=== PATIENT | male | born 1955 | race Caucasian/White ===

== ENCOUNTER 2017-01-05 13:24 | Inpatient (IN) | payer OTHER ==
[~2017-01-05] VITALS: Ht 172.7 cm; Wt 129.2 kg
[~2017-01-05 13:24] MED LIST: ACTO45TA8 PO; ATOR1TAB18 PO; BUPR300T PO; LOSA50TA2 PO; PROPOFOL 200 MG/20 ML AMP IV ONE; VENTAER2 INH; VICT18IN SQ
[2017-01-05] MEDS ORDERED: MORPHINE SULFATE 8 MG/ML INJ IV PUSH ONE ×3 (13:30→16:30)
[2017-01-05] MEDS ORDERED: SODIUM CHLOR 0.9% 1000 ML INJ 1,000 ML IV ONE (13:30)
[2017-01-05] MEDS ORDERED: ONDANSETRON HCL 4 MG/2 ML VIAL IV PUSH ONE (13:30)
[2017-01-05] MEDS ORDERED: TETANUS/DIPHTHERIA TOXOID ADULT 0.5 ML VIAL IM ONE (13:30)
[2017-01-05 13:32] VITALS: BP 130/80; PULSE 70; RESP 20; O2SAT 99
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
[2017-01-05] MEDS ORDERED: CIAL5TAB PO (13:38)
[2017-01-05] MEDS ORDERED: FLUT1INH INH (13:39)
[2017-01-05 13:52] LABS: AUTOMATED NEUTROPHIL # 10.7 TH/MM3 (1.8-7.7); BASOPHIL # 0.1 TH/MM3 (0-0.2); BASOPHIL % 0.5 % (0.0-2.0); EOSINOPHIL # 0.1 TH/MM3 (0-0.4); HEMATOCRIT 42.1 % (39.0-51.0); HEMO FLAGS DIFF FINAL; LYMPH % 12.7 % (9.0-44.0); LYMPHOCYTE # 1.7 TH/MM3 (1.0-4.8); MEAN CORPUSCULAR HEMOGLOBIN 29.7 PG (27.0-34.0); MONO % 6.2 % (0.0-8.0); NEUT % 79.6 % (16.0-70.0); PLATELET COUNT 287 TH/MM3 (150-450); RED BLOOD COUNT 4.68 MIL/MM3 (4.50-5.90); RED CELL DISTRIBUTION WIDTH 13.5 % (11.6-17.2); WHITE BLOOD COUNT 13.4 TH/MM3 (4.0-11.0)
[2017-01-05 13:57] LABS: APTT (PATIENT) 22.6 SEC (24.3-30.1); PROTHROMBIN TIME - PATIENT 11.1 SEC (9.8-11.6)
[2017-01-05 14:04] LABS: ANION GAP 10 MEQ/L (5-15); AST (GOT) 24 U/L (15-37); BICARBONATE 26.7 MEQ/L (21.0-32.0); BLOOD UREA NITROGEN 13 MG/DL (7-18); CHLORIDE 98 MEQ/L (98-107); GLOMERULAR FILTRATION RATE 63 ML/MIN (>89); POTASSIUM 3.9 MEQ/L (3.5-5.1); SODIUM (NA) 135 MEQ/L (136-145)
[2017-01-05 14:10] LABS: ALKALINE PHOSPHATASE 71 U/L (45-117); ALT (GPT) 34 U/L (12-78); TOTAL BILIRUBIN ADULT 0.4 MG/DL (0.2-1.0)
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
[2017-01-05 15:13] VITALS: BP 148/72; PULSE 80; RESP 19; O2SAT 96
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
[2017-01-05 16:00] VITALS: O2SAT 100
[2017-01-05] MEDS ORDERED: PROPOFOL 200 MG/20 ML AMP IV ONE (16:00)
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
[2017-01-05] MEDS ORDERED: SODIUM CHLOR 0.9% 1000 ML INJ 1,000 ML IV SCH (16:40)
[2017-01-05] MEDS ORDERED: ACETAMINOPHEN/HYDROcodone 325 MG/5 MG TAB PO PRN (16:45)
[2017-01-05] MEDS ORDERED: SODIUM CHLORIDE 0.9% FLUSH 5 ML FLUSH IVF PRN ×2 (16:45→19:00)
[2017-01-05] MEDS ORDERED: NALOXONE HCL 0.4 MG/ML AMP IV PRN (16:45)
[2017-01-05] MEDS ORDERED: RESP: ALBUTEROL 1.25 MG/3 ML NEB (PRN) NEB (16:45)
[2017-01-05] MEDS ORDERED: diphenhydrAMINE HCL 25 MG CAP PO PRN (16:45)
[2017-01-05] MEDS ORDERED: diphenhydrAMINE HCL 50 MG/ML VIAL IV PRN (16:45)
[2017-01-05] MEDS ORDERED: GLUCAGON 1 MG/ML VIAL OTHER PRN (16:45)
[2017-01-05] MEDS ORDERED: MORPHINE SULFATE 8 MG/ML INJ IV PUSH PRN (16:45)
[2017-01-05] MEDS ORDERED: DEXTROSE 50% IN WATER 50 ML VIAL(D50) IV PUSH PRN (16:45)
[2017-01-05] MEDS ORDERED: VANCOMYCIN HCL 1000 MG VIAL ONE (16:54)
[2017-01-05] MEDS ORDERED: GENTAMICIN SULFATE 80 MG/2 ML VIAL ONE (16:54)
[2017-01-05] MEDS ORDERED: ceFAZolin INJ 1,000 MG VIAL ONE (16:54)
[2017-01-05 17:00] VITALS: BP 141/64; TEMP 98.6
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
[2017-01-05] MEDS ORDERED: ACETAMINOPHEN 1000 MG/100 ML VIAL IV ONE (17:26)
[2017-01-05] MEDS ORDERED: Post-op Orders (for Pharmacy) MISC XX ONE (19:00)
[2017-01-05] MEDS ORDERED: MORPHINE SULFATE 4 MG/ML INJ IV PUSH PRN (19:00)
--- NOTE | 2017-01-05 19:06 | PD.OP ---
cc: Aroldo Rojas MD Operative Report Date of Surgery: Jan 05, 2017 Preoperative Diagnosis: Displaced right tibia and fibula shaft fractures Postoperative Diagnosis: Procedure: Reduction and intramedullary nail fixation right tibia Anesthesia: Gen. Surgeon: Aroldo Rojas Tube Closing Machine Operator(s): Mehran Bacon PA-C The surgical procedure was assisted by my physician orthodontic technician assistant. My P.A. presence was necessary throughout this case for the manipulation and positioning of the surgical extremity. My P.A. was assisting me throughout the duration of this procedure. The skill set of a physician orthodontic technician assistant was medically necessary to complete this procedure. During the surgical case the semiconductor lab technician was working at the back table and the physician orthodontic technician assistant was directly assisting me. Operation and Findings: Implants: ITS [10]mm x [360]mm tibial nail Plan of activity: Toe-touch weightbearing Patient was seen and examined preoperatively. An informed consent was obtained from patient after detailed discussion of risk and benefits. Risks of surgery include bleeding, infection, painful hardware, nonunion, malunion, leg length discrepancy, need for hardware removal, and medical complications associated with anesthesia including blood clots, stroke, heart attack, and were discussed. Operative site was marked. Patient was brought to the operating room placed on or table. Patient received IV antibiotics and was given IV sedation GETA. Operative leg was prepped with alcohol Hibiclens and draped in usual sterile fashion. Timeout procedure was performed Procedure began with reduction of fracture. 2 small incisions were made around the fracture site. A percutaneous clamp was placed. Traction was applied. Fracture was reduced. There was comminution of the fracture. The fracture reduced and excellent alignment was achieved. Fracture clamp was used to aid in reduction. Next a 3 cm incision was made proximal to the patella. Quadriceps tendon was split in line with fibers. Cannulas were placed in the patellofemoral joint to protect the articular surface at all times. A guidepin was placed into the tibia and advanced in the tibial canal. Fluoroscopy was used to confirm appropriate guidepin placement. An opening reamer was used to open the tibial canal. A ball-tipped guidewire was advanced down the tibial canal. Guidepin was passed across the fracture site into the center of the distal tibia. Fluoroscopy confirmed guidepin placement. The nail length was now measured. The fracture was now held in a reduced position and the canal was reamed. The canal was reamed up to appropriate size. A ITS nail was now selected. Next the nail was fully seated. Using perfect [place] technique 2 distal interlocking screws were placed. Using the insertion handle as a guide 2 proximal interlocking screws were placed. Fluoroscopy confirmed excellent of fracture with well-placed hardware. Incisions and the knee joint were thoroughly irrigated with sterile saline. Fascia was closed with #1 Vicryl, subcutaneous tissues closed with 3-0 Vicryl and skin was closed with dayron. Sterile dressings were applied. Patient was awakened and transferred to recovery in stable condition. Aroldo Rojas MD Jan 05, 2017 19:06
[2017-01-05] MEDS ORDERED: fentaNYL CITRATE 250 MCG/5 ML AMP ONE (19:31)
[2017-01-05] MEDS ORDERED: MORPHINE SULFATE 4 MG/ML INJ ONE (19:31)
--- NOTE | 2017-01-05 19:52 | RADRPT ---
EXAM DATE/TIME: 01/05/2017 18:48 [facility] COMPARISON: TIBIA/FIBULA RIGHT (AP/LAT), January 05, 2017, 14:30. INDICATIONS : ORIF right lower leg. MEDICAL HISTORY : None. SURGICAL HISTORY : None. ENCOUNTER: Subsequent ACUITY: 1 day PAIN SCORE: Non-responsive. LOCATION: Right lower leg FINDINGS: Status post placement of intramedullary jennifer tibia. There is good position and alignment of the fractu re fragments. There is good alignment involving the fractures of the fibula. CONCLUSION: Good position and alignment on postoperative study. Ender Garcia MD on January 05, 2017 at 19:50 Board Certified Radiologist. This report was verified electronically.
[2017-01-05] MEDS: LACTATED RINGER'S 1000 ML INJ 1,000 ML IV SCH (20:00)
[2017-01-05 20:45] VITALS: BP 130/68; PULSE 98; RESP 16; TEMP 96.1; O2SAT 98
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
[2017-01-05] MEDS: SODIUM CHLORIDE 0.9% FLUSH 5 ML FLUSH IVF SCH ×2 (21:01)
[2017-01-05] MEDS: ACETAMINOPHEN/HYDROcodone 325 MG/10 MG TAB PO PRN (21:11)
[2017-01-05] MEDS: DOCUSATE SODIUM 100 MG CAP PO SCH (21:11)
[2017-01-05] MEDS: ceFAZolin 2 GM PREMIX 50 ML IV SCH (21:12)
[2017-01-05] MEDS: KETOROLAC TROMETHAMINE 30 MG/ML (IVP) VIAL IVP SCH (21:12)
[2017-01-05] MEDS: INSULIN ASPART SUPPLEMENTAL SCALE SQ SCH (21:13)
[2017-01-05 21:55] VITALS: O2SAT 98
[2017-01-05] MEDS: ONDANSETRON HCL 4 MG/2 ML VIAL IVP PRN (22:22)
[2017-01-06] VITALS (7 sets, daily range): BP systolic 107–136; BP diastolic 65–74; PULSE 86–97; RESP 16–17; TEMP 96.6–99.9; O2SAT 96–99
[2017-01-06] MEDS: LACTATED RINGER'S 1000 ML INJ 1,000 ML IV SCH ×3 (04:59→21:51)
[2017-01-06] MEDS: ONDANSETRON HCL 4 MG/2 ML VIAL IVP PRN (05:11)
[2017-01-06] MEDS: ceFAZolin 2 GM PREMIX 50 ML IV SCH ×3 (05:18→21:26)
[2017-01-06] MEDS: KETOROLAC TROMETHAMINE 30 MG/ML (IVP) VIAL IVP SCH ×2 (05:19→11:52)
[2017-01-06] MEDS: INSULIN ASPART SUPPLEMENTAL SCALE SQ SCH ×4 (05:20→20:20)
[2017-01-06 06:15] LABS: AUTOMATED NEUTROPHIL # 2.8 TH/MM3 (1.8-7.7); BASOPHIL % 0.3 % (0.0-2.0); EOSINOPHIL % 0.5 % (0.0-4.0); HEMATOCRIT 35.1 % (39.0-51.0); HEMO FLAGS DIFF FINAL; LYMPH % 21.3 % (9.0-44.0); MEAN CORPUSCULAR HEMOGLOBIN 30.7 PG (27.0-34.0); MEAN CORPUSCULAR HGB CONC 34.1 % (32.0-36.0); MONO % 15.1 % (0.0-8.0); NEUT % 62.8 % (16.0-70.0); PLATELET COUNT 214 TH/MM3 (150-450); RED CELL DISTRIBUTION WIDTH 13.9 % (11.6-17.2); WHITE BLOOD COUNT 4.5 TH/MM3 (4.0-11.0)
[2017-01-06 06:34] LABS: BICARBONATE 24.5 MEQ/L (21.0-32.0); POTASSIUM 4.3 MEQ/L (3.5-5.1)
[2017-01-06] MEDS ORDERED: METOCLOPRAMIDE HCL 10 MG/2 ML VIAL IV PUSH PRN (06:45)
[2017-01-06] MEDS ORDERED: ONDANSETRON HCL 4 MG/2 ML VIAL IV PUSH ONE (06:45)
--- NOTE | 2017-01-06 06:55 | PD.ORT.PN ---
Subjective Subjective Remarks POD 1 s/p IMN right tibia doing well. reports some stiffness and slight pain Objective Vitals Vital Signs Date Time Temp Pulse Resp B/P Pulse Ox O2 Delivery O2 Flow Rate FiO2 01/06/17 04:00 96.9 93 16 132/70 99 01/06/17 00:00 96.6 89 16 107/65 99 01/05/17 21:55 98 Nasal Cannula 2.00 01/05/17 20:45 96.1 98 16 130/68 98 01/05/17 20:00 96 16 151/85 95 Nasal Cannula 3 01/05/17 19:45 97 16 151/81 97 Nasal Cannula 3 01/05/17 19:30 107 16 158/72 95 Nasal Cannula 3 01/05/17 19:18 98.4 103 18 165/70 95 Nasal Cannula 3 01/05/17 17:00 98.6 89 19 141/64 100 01/05/17 16:00 100 3.00 01/05/17 15:13 80 19 148/72 96 Room Air 01/05/17 13:36 63 17 97 Room Air 01/05/17 13:32 70 20 130/80 99 Room Air I/O 01/05/17 01/05/17 01/05/17 01/06/17 01/06/17 01/06/17 07:00 15:00 23:00 07:00 15:00 23:00 Intake Total 1740 ml 971 ml Output Total 950 ml 450 ml Balance 790 ml 521 ml Intake Oral 240 ml 240 ml IV Total 731 ml Other 1500 ml Output Urine Total 900 ml 450 ml Estimated Blood Loss 50 ml # Voids 1 # Bowel Movements 0 0 Result Diagram: 01/06/17 0540 01/06/17 0540 Other Results Laboratory Tests Test 01/05/17 13:36 Prothrombin Time 11.1 SEC (9.8-11.6) Prothromb Time International 1.0 RATIO Ratio Objective Remarks RLE: dressings clean and dry. intact. Full sensation distally wtih good dorsiflexion. compartments soft Assessment & Plan Assessment and Plan 1) Right Distal Tibia Shaft Fx s/p IMN - POD 1 -TTWB -dressing changes POD 2 -CM for home with [facility] -plan for home tomorrow if ambulating safely with therapy and pain controlled -f/u with [facility] or PA in 2 weeks Mehran Bacon Jan 06, 2017 06:55
[2017-01-06] MEDS ORDERED: WALKER/ADULT/FO1 MIS (06:56)
[2017-01-06] MEDS ORDERED: XARE10TA PO (06:56)
[2017-01-06] MEDS ORDERED: HYDR-3366 PO (06:56)
--- NOTE | 2017-01-06 06:57 | HHI.FF ---
Face to Face Verification Diagnosis: (1) Tibia/fibula fracture Physical Therapy Gait training Right LE Weight Bearing: Toe Touch WB Nursing Dressing Changes: Daily dressing change, 4x4s, Paper tape, Xeroform I have seen patient Guevara Griggs on 01/06/17. My clinical findings support the need for the requested home health care services because: Ltd mobility - disease progression I certify that my clinical findings support that this patient is homebound because: Post-op weakness Mehran Bacon Jan 06, 2017 06:57
[2017-01-06] MEDS: SODIUM CHLORIDE 0.9% FLUSH 5 ML FLUSH IVF SCH ×4 (09:00→21:26)
[2017-01-06] MEDS: FLUTICASONE 100 MCG/VILANTEROL 25 MCG INHALER INH SCH (09:00)
[2017-01-06] MEDS ORDERED: buPROPion HCL 150 MG EXTENDED RELEASE TAB PO SCH (09:00)
[2017-01-06] MEDS: DOCUSATE SODIUM 100 MG CAP PO SCH ×2 (09:21→20:20)
[2017-01-06] MEDS: buPROPion HCL 150 MG SUSTAINED RELEASE TAB PO SCH ×2 (09:21→20:20)
[2017-01-06] MEDS: CALCIUM/VITAMIN D 250 MG/125 U TAB PO SCH ×3 (09:22→17:26)
[2017-01-06] MEDS: LOSARTAN 50 MG TAB PO SCH (09:22)
[2017-01-06] MEDS: ATORVASTATIN 80 MG TAB PO SCH (09:22)
[2017-01-06] MEDS: HYDROCHLOROTHIAZIDE 12.5 MG CAP PO SCH (09:22)
[2017-01-06] MEDS: ACETAMINOPHEN/HYDROcodone 325 MG/10 MG TAB PO PRN ×4 (09:24→21:26)
--- NOTE | 2017-01-06 10:19 | EKG ---
Date Performed: 01/05/2017 Time Performed: 16:30:18 PTAGE: 61 years EKG: Sinus rhythm NORMAL ECG PREVIOUS TRACING : 08/18/2016 17.59 DOCTOR: Adin Galvan Interpretating Date/Time 01/06/2017 10:16:41
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
[2017-01-06] MEDS: ENOXAPARIN SODIUM 40 MG/0.4 ML SYRINGE SQ SCH (17:26)
[2017-01-07] VITALS (7 sets, daily range): BP systolic 112–148; BP diastolic 56–74; PULSE 86–103; RESP 16–19; TEMP 97.3–99.7; O2SAT 95–99
[2017-01-07] MEDS: ACETAMINOPHEN/HYDROcodone 325 MG/10 MG TAB PO PRN ×7 (01:17→23:20)
[2017-01-07] MEDS: ceFAZolin 2 GM PREMIX 50 ML IV SCH ×2 (05:05→11:52)
[2017-01-07] MEDS: INSULIN ASPART SUPPLEMENTAL SCALE SQ SCH ×5 (05:14→19:55)
--- NOTE | 2017-01-07 07:58 | PD.ORT.PN ---
Subjective Subjective Remarks POD 2 s/p IMN right tibia doing well. reports some stiffness and slight pain. out of bed to chair yesterday Objective Vitals Vital Signs Date Time Temp Pulse Resp B/P Pulse Ox O2 Delivery O2 Flow Rate FiO2 01/07/17 04:00 98.8 97 17 147/74 95 01/07/17 00:00 99.2 98 16 126/65 97 01/06/17 20:00 99.3 97 17 124/67 97 01/06/17 16:00 98.3 86 16 111/68 96 01/06/17 13:32 99 Nasal Cannula 2.00 01/06/17 12:00 99.9 95 16 113/71 96 01/06/17 08:00 98.2 91 16 136/74 99 I/O 01/06/17 01/06/17 01/06/17 01/07/17 01/07/17 01/07/17 07:00 15:00 23:00 07:00 15:00 23:00 Intake Total 971 ml 847 ml 240 ml 320 ml Output Total 450 ml 1500 ml 300 ml Balance 521 ml -653 ml 240 ml 20 ml Intake Oral 240 ml 600 ml 240 ml 240 ml IV Total 731 ml 247 ml 80 ml Output Urine Total 450 ml 1500 ml 300 ml # Voids 1 # Bowel Movements 0 0 0 0 Result Diagram: 01/06/17 0540 01/06/17 0540 Objective Remarks RLE: dressings clean and dry. intact. Full sensation distally wtih good dorsiflexion. compartments soft Assessment & Plan Assessment and Plan 1) Right Distal Tibia Shaft Fx s/p IMN - POD 2 -TTWB -dressing changes -CM for home with HHC vs rehab. patient lives alone on 2nd floor. may be safer with rehab placement -f/u with [facility] or [facility] in 2 weeks Mehran Bacon Jan 07, 2017 07:58
[2017-01-07] MEDS: LOSARTAN 50 MG TAB PO SCH (08:13)
[2017-01-07] MEDS: HYDROCHLOROTHIAZIDE 12.5 MG CAP PO SCH (08:13)
[2017-01-07] MEDS: DOCUSATE SODIUM 100 MG CAP PO SCH ×2 (08:13→19:55)
[2017-01-07] MEDS: ATORVASTATIN 80 MG TAB PO SCH (08:13)
[2017-01-07] MEDS: buPROPion HCL 150 MG SUSTAINED RELEASE TAB PO SCH ×2 (08:13→19:54)
[2017-01-07] MEDS: CALCIUM/VITAMIN D 250 MG/125 U TAB PO SCH ×3 (08:13→16:23)
[2017-01-07] MEDS: SODIUM CHLORIDE 0.9% FLUSH 5 ML FLUSH IVF SCH ×4 (08:13→19:49)
[2017-01-07] MEDS: FLUTICASONE 100 MCG/VILANTEROL 25 MCG INHALER INH SCH (08:17)
[2017-01-07] MEDS ORDERED: LORA-392 PO (10:56)
[2017-01-07] MEDS: LACTATED RINGER'S 1000 ML INJ 1,000 ML IV SCH ×2 (10:59→19:49)
[2017-01-07] MEDS ORDERED: LORazepam 0.5 MG TAB PO PRN (11:00)
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
[2017-01-07] MEDS: ENOXAPARIN SODIUM 40 MG/0.4 ML SYRINGE SQ SCH (16:23)
[2017-01-07] MEDS: MAGNESIUM HYDROXIDE SUSP 30 ML CUP PO PRN (19:55)
[2017-01-08] VITALS: BP 138/70; PULSE 91; RESP 16; TEMP 98.8; O2SAT 95
[2017-01-08] MEDS: LACTATED RINGER'S 1000 ML INJ 1,000 ML IV SCH ×2 (03:02→16:59)
[2017-01-08] MEDS: ACETAMINOPHEN/HYDROcodone 325 MG/10 MG TAB PO PRN ×5 (03:56→20:50)
[2017-01-08] MEDS: INSULIN ASPART SUPPLEMENTAL SCALE SQ SCH ×4 (05:39→20:56)
--- NOTE | 2017-01-08 06:52 | PD.ORT.PN ---
Subjective Subjective Remarks POD 3 s/p IMN right tibia doing well. reports some stiffness and slight pain. out of bed to chair yesterday Objective Vitals Vital Signs Date Time Temp Pulse Resp B/P Pulse Ox O2 Delivery O2 Flow Rate FiO2 01/08/17 00:00 98.8 91 16 138/70 95 01/07/17 19:30 99.7 103 17 148/70 98 01/07/17 16:21 99.7 90 19 132/68 99 01/07/17 12:00 98.9 86 18 112/56 95 01/07/17 09:40 99 21 01/07/17 08:00 97.3 89 18 118/59 96 I/O 01/07/17 01/07/17 01/07/17 01/08/17 01/08/17 01/08/17 07:00 15:00 23:00 07:00 15:00 23:00 Intake Total 320 ml 840 ml 240 ml Output Total 300 ml 1200 ml 300 ml Balance 20 ml -360 ml -60 ml Intake Oral 240 ml 840 ml 240 ml IV Total 80 ml Output Urine Total 300 ml 1200 ml 300 ml # Bowel Movements 0 0 0 Result Diagram: 01/06/17 0540 01/06/17 0540 Objective Remarks RLE: dressings clean and dry. intact. Full sensation distally wtih good dorsiflexion. compartments soft Assessment & Plan Assessment and Plan 1) Right Distal Tibia Shaft Fx s/p IMN - POD 3 -TTWB -dressing changes -CM for home with C vs rehab. patient lives alone on 2nd floor. may be safer with rehab placement -CM to set up rehab -ortho clear for discharge to rehab today -f/u with [facility] or [facility] in 2 weeks Mehran Bacon Jan 08, 2017 06:52
[2017-01-08 08:00] VITALS: BP 136/75; PULSE 93; RESP 16; TEMP 97.5; O2SAT 97
[2017-01-08] MEDS: LOSARTAN 50 MG TAB PO SCH (08:40)
[2017-01-08] MEDS: DOCUSATE SODIUM 100 MG CAP PO SCH ×2 (08:40→20:49)
[2017-01-08] MEDS: buPROPion HCL 150 MG SUSTAINED RELEASE TAB PO SCH ×2 (08:40→20:48)
[2017-01-08] MEDS: ATORVASTATIN 80 MG TAB PO SCH (08:40)
[2017-01-08] MEDS: HYDROCHLOROTHIAZIDE 12.5 MG CAP PO SCH (08:40)
[2017-01-08] MEDS: CALCIUM/VITAMIN D 250 MG/125 U TAB PO SCH ×3 (08:40→16:52)
[2017-01-08] MEDS: SODIUM CHLORIDE 0.9% FLUSH 5 ML FLUSH IVF SCH ×4 (08:41→20:50)
[2017-01-08] MEDS: FLUTICASONE 100 MCG/VILANTEROL 25 MCG INHALER INH SCH (08:43)
[2017-01-08 12:00] VITALS: BP 144/69; PULSE 94; RESP 16; TEMP 98.5; O2SAT 97
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
[2017-01-08 16:36] VITALS: BP 130/74; PULSE 90; RESP 16; TEMP 97.9; O2SAT 98
[2017-01-08] MEDS: ENOXAPARIN SODIUM 40 MG/0.4 ML SYRINGE SQ SCH (16:52)
[2017-01-08] MEDS: MAGNESIUM HYDROXIDE SUSP 30 ML CUP PO PRN (17:19)
[2017-01-08 19:15] VITALS: BP 160/79; PULSE 99; RESP 16; TEMP 98.9; O2SAT 99
[2017-01-09] VITALS: BP 133/60; PULSE 82; RESP 17; TEMP 97.6; O2SAT 98
[2017-01-09] MEDS: ACETAMINOPHEN/HYDROcodone 325 MG/10 MG TAB PO PRN ×6 (00:16→21:27)
[2017-01-09] MEDS: LACTATED RINGER'S 1000 ML INJ 1,000 ML IV SCH ×3 (02:59→22:59)
[2017-01-09] MEDS: MAGNESIUM HYDROXIDE SUSP 30 ML CUP PO PRN ×2 (03:44→09:43)
[2017-01-09] MEDS: INSULIN ASPART SUPPLEMENTAL SCALE SQ SCH ×4 (06:35→21:26)
--- NOTE | 2017-01-09 06:52 | PD.ORT.PN ---
Subjective Subjective Remarks Improving Objective Vitals Vital Signs Date Time Temp Pulse Resp B/P Pulse Ox O2 Delivery O2 Flow Rate FiO2 01/09/17 00:00 97.6 82 17 133/60 98 01/08/17 20:00 99 Room Air 01/08/17 19:15 98.9 99 16 160/79 99 01/08/17 16:36 97.9 90 16 130/74 98 01/08/17 12:00 98.5 94 16 144/69 97 01/08/17 08:00 97.5 93 16 136/75 97 I/O 01/08/17 01/08/17 01/08/17 01/09/17 01/09/17 01/09/17 06:59 14:59 22:59 06:59 14:59 22:59 Intake Total 240 ml 1080 ml 720 ml Output Total 300 ml 600 ml Balance -60 ml 1080 ml 120 ml Intake Oral 240 ml 1080 ml 720 ml Output Urine Total 300 ml 600 ml # Voids 4 # Bowel Movements 0 Result Diagram: 01/06/17 0540 01/06/17 0540 Objective Remarks RLE: dressings clean and dry. intact. Full sensation distally with good dorsiflexion. compartments soft Assessment & Plan Assessment and Plan 1) Right Distal Tibia Shaft Fx s/p IMN - POD 4 -TTWB -dressing changes -CM for home rehab. Lovenox -ortho clear for discharge to rehab today -f/u with Stephan or SOBEIDA in 2 weeks Stephan Dahl Jr. Jan 09, 2017 06:52
[2017-01-09 08:00] VITALS: BP 127/76; PULSE 66; RESP 18; TEMP 96.5; O2SAT 97
[2017-01-09] MEDS: SODIUM CHLORIDE 0.9% FLUSH 5 ML FLUSH IVF SCH ×4 (09:00→21:24)
[2017-01-09] MEDS: FLUTICASONE 100 MCG/VILANTEROL 25 MCG INHALER INH SCH (09:00)
[2017-01-09] MEDS: DOCUSATE SODIUM 100 MG CAP PO SCH ×2 (09:43→21:25)
[2017-01-09] MEDS: LOSARTAN 50 MG TAB PO SCH (09:43)
[2017-01-09] MEDS: CALCIUM/VITAMIN D 250 MG/125 U TAB PO SCH ×3 (09:43→18:36)
[2017-01-09] MEDS: buPROPion HCL 150 MG SUSTAINED RELEASE TAB PO SCH ×2 (09:43→21:25)
[2017-01-09] MEDS: HYDROCHLOROTHIAZIDE 12.5 MG CAP PO SCH (09:44)
[2017-01-09] MEDS: ATORVASTATIN 80 MG TAB PO SCH (09:44)
[2017-01-09 11:03] VITALS: O2SAT 97
[2017-01-09] MEDS ORDERED: DOCUSATE SODIUM 50 MG/SENNA 8.6 MG TAB PO ONE (11:45)
[2017-01-09] MEDS ORDERED: MAGNESIUM HYDROXIDE SUSP 30 ML CUP PO ONE (11:45)
[2017-01-09 12:00] VITALS: BP 141/64; PULSE 86; RESP 18; TEMP 97.9; O2SAT 98
[2017-01-09 16:00] VITALS: BP 122/71; PULSE 97; RESP 20; TEMP 97.1; O2SAT 98
[2017-01-09] MEDS: ENOXAPARIN SODIUM 40 MG/0.4 ML SYRINGE SQ SCH (18:35)
[2017-01-09 20:00] VITALS: BP 166/89; PULSE 93; RESP 16; TEMP 98.9; O2SAT 98
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
[2017-01-10] VITALS: BP 145/71; PULSE 82; RESP 16; TEMP 98.3; O2SAT 97
[2017-01-10] MEDS: ACETAMINOPHEN/HYDROcodone 325 MG/10 MG TAB PO PRN ×7 (00:39→21:22)
[2017-01-10] MEDS: INSULIN ASPART SUPPLEMENTAL SCALE SQ SCH ×4 (06:23→21:16)
--- NOTE | 2017-01-10 07:05 | PD.ORT.PN ---
Subjective Subjective Remarks Improving, no new complaints Objective Vitals Vital Signs Date Time Temp Pulse Resp B/P Pulse Ox O2 Delivery O2 Flow Rate FiO2 01/10/17 00:00 98.3 82 16 145/71 97 01/09/17 20:00 98 Room Air 01/09/17 20:00 98.9 93 16 166/89 98 01/09/17 16:00 97.1 97 20 122/71 98 01/09/17 12:00 97.9 86 18 141/64 98 01/09/17 11:03 97 21 01/09/17 08:00 96.5 66 18 127/76 97 I/O 01/09/17 01/09/17 01/09/17 01/10/17 01/10/17 01/10/17 07:00 15:00 23:00 07:00 15:00 23:00 Intake Total 720 ml 720 ml 480 ml 480 ml Output Total 600 ml 650 ml 450 ml Balance 120 ml 70 ml 30 ml 480 ml Intake Oral 720 ml 720 ml 480 ml 480 ml Output Urine Total 600 ml 650 ml 450 ml # Voids 2 2 # Bowel Movements 1 1 Result Diagram: 01/06/17 0540 01/06/17 0540 Objective Remarks RLE: dressings clean and dry. intact. Full sensation distally with good dorsiflexion. compartments soft Assessment & Plan Assessment and Plan 1) Right Distal Tibia Shaft Fx s/p IMN - POD 5 -TTWB -dressing changes -CM for home rehab. Lovenox -ortho clear for discharge to rehab when bed available -f/u with Stephan or SOBEIDA in 2 weeks Stephan Dahl Jr. Jan 10, 2017 07:05
[2017-01-10] MEDS: ATORVASTATIN 80 MG TAB PO SCH (07:54)
[2017-01-10] MEDS: LOSARTAN 50 MG TAB PO SCH (07:54)
[2017-01-10] MEDS: DOCUSATE SODIUM 100 MG CAP PO SCH ×2 (07:54→21:14)
[2017-01-10] MEDS: HYDROCHLOROTHIAZIDE 12.5 MG CAP PO SCH (07:54)
[2017-01-10] MEDS: buPROPion HCL 150 MG SUSTAINED RELEASE TAB PO SCH ×2 (07:54→21:14)
[2017-01-10] MEDS: CALCIUM/VITAMIN D 250 MG/125 U TAB PO SCH ×3 (07:55→17:27)
[2017-01-10] MEDS: SODIUM CHLORIDE 0.9% FLUSH 5 ML FLUSH IVF SCH ×4 (07:57→21:13)
[2017-01-10] MEDS: FLUTICASONE 100 MCG/VILANTEROL 25 MCG INHALER INH SCH (07:57)
[2017-01-10 08:00] VITALS: BP 145/69; PULSE 85; RESP 18; TEMP 98.4; O2SAT 95
[2017-01-10] MEDS: LACTATED RINGER'S 1000 ML INJ 1,000 ML IV SCH ×2 (08:59→18:59)
[2017-01-10 12:00] VITALS: BP 143/72; PULSE 89; RESP 19; TEMP 97.4; O2SAT 96
[2017-01-10 16:00] VITALS: BP 134/68; PULSE 94; RESP 18; TEMP 99.2; O2SAT 98
[2017-01-10] MEDS: ENOXAPARIN SODIUM 40 MG/0.4 ML SYRINGE SQ SCH (17:27)
[2017-01-10 19:35] VITALS: BP 147/70; PULSE 92; RESP 17; TEMP 98.6; O2SAT 96
[2017-01-11 00:05] VITALS: BP 121/64; PULSE 87; RESP 17; TEMP 98.2; O2SAT 93
[2017-01-11] MEDS: ACETAMINOPHEN/HYDROcodone 325 MG/10 MG TAB PO PRN (03:10)
[2017-01-11] MEDS: LACTATED RINGER'S 1000 ML INJ 1,000 ML IV SCH ×2 (04:59→14:59)
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
[2017-01-11] MEDS: INSULIN ASPART SUPPLEMENTAL SCALE SQ SCH ×4 (06:57→22:17)
[2017-01-11 08:00] VITALS: BP 148/83; PULSE 82; RESP 18; TEMP 95.8; O2SAT 97
[2017-01-11] MEDS: CALCIUM/VITAMIN D 250 MG/125 U TAB PO SCH ×3 (08:39→17:38)
[2017-01-11] MEDS: ATORVASTATIN 80 MG TAB PO SCH (08:39)
[2017-01-11] MEDS: buPROPion HCL 150 MG SUSTAINED RELEASE TAB PO SCH ×2 (08:39→20:33)
[2017-01-11] MEDS: HYDROCHLOROTHIAZIDE 12.5 MG CAP PO SCH (08:40)
[2017-01-11] MEDS: LOSARTAN 50 MG TAB PO SCH (08:40)
[2017-01-11] MEDS: ACETAMINOPHEN/HYDROcodone 325 MG/5 MG TAB PO PRN ×3 (08:40→16:17)
[2017-01-11] MEDS: DOCUSATE SODIUM 100 MG CAP PO SCH ×2 (08:40→20:34)
[2017-01-11] MEDS: SODIUM CHLORIDE 0.9% FLUSH 5 ML FLUSH IVF SCH ×4 (08:46→20:39)
[2017-01-11] MEDS: FLUTICASONE 100 MCG/VILANTEROL 25 MCG INHALER INH SCH (09:00)
[2017-01-11 12:00] VITALS: BP 149/85; PULSE 85; RESP 19; TEMP 99.4; O2SAT 93
[2017-01-11 16:00] VITALS: BP 148/81; PULSE 91; RESP 18; TEMP 97; O2SAT 95
[2017-01-11] MEDS: ENOXAPARIN SODIUM 40 MG/0.4 ML SYRINGE SQ SCH (17:38)
[2017-01-11 20:10] VITALS: BP 132/69; PULSE 96; RESP 18; TEMP 97.7; O2SAT 95
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
[2017-01-12 00:40] VITALS: BP 146/78; PULSE 81; RESP 17; TEMP 97; O2SAT 96
[2017-01-12] MEDS: ACETAMINOPHEN/HYDROcodone 325 MG/5 MG TAB PO PRN ×5 (02:50→20:16)
[2017-01-12 03:50] VITALS: BP 151/71; PULSE 82; RESP 17; TEMP 97.7; O2SAT 97
[2017-01-12] MEDS: MAGNESIUM HYDROXIDE SUSP 30 ML CUP PO PRN (06:48)
[2017-01-12] MEDS: INSULIN ASPART SUPPLEMENTAL SCALE SQ SCH ×4 (06:48→20:28)
[2017-01-12 07:12] LABS: AUTOMATED NEUTROPHIL # 5.6 TH/MM3 (1.8-7.7); BASOPHIL % 0.4 % (0.0-2.0); EOSINOPHIL # 0.5 TH/MM3 (0-0.4); EOSINOPHIL % 6.4 % (0.0-4.0); HEMATOCRIT 30.5 % (39.0-51.0); LYMPH % 17.7 % (9.0-44.0); LYMPHOCYTE # 1.5 TH/MM3 (1.0-4.8); MEAN CELL VOLUME 90.1 FL (80.0-100.0); MEAN CORPUSCULAR HEMOGLOBIN 30.4 PG (27.0-34.0); MEAN CORPUSCULAR HGB CONC 33.7 % (32.0-36.0); MONO % 9.9 % (0.0-8.0); NEUT % 65.6 % (16.0-70.0); PLATELET COUNT 323 TH/MM3 (150-450); RED BLOOD COUNT 3.39 MIL/MM3 (4.50-5.90); RED CELL DISTRIBUTION WIDTH 13.7 % (11.6-17.2); WHITE BLOOD COUNT 8.5 TH/MM3 (4.0-11.0)
[2017-01-12 07:24] LABS: HEMO FLAGS AUTO DIFF
[2017-01-12 07:49] LABS: BICARBONATE 28.9 MEQ/L (21.0-32.0); POTASSIUM 3.6 MEQ/L (3.5-5.1)
[2017-01-12 08:00] VITALS: BP 146/79; PULSE 82; RESP 18; TEMP 98.2; O2SAT 97
[2017-01-12] MEDS: ATORVASTATIN 80 MG TAB PO SCH (08:02)
[2017-01-12] MEDS: buPROPion HCL 150 MG SUSTAINED RELEASE TAB PO SCH ×2 (08:02→20:27)
[2017-01-12] MEDS: CALCIUM/VITAMIN D 250 MG/125 U TAB PO SCH ×3 (08:02→17:32)
[2017-01-12] MEDS: LOSARTAN 50 MG TAB PO SCH (08:02)
[2017-01-12] MEDS: DOCUSATE SODIUM 100 MG CAP PO SCH ×2 (08:02→20:17)
[2017-01-12] MEDS: HYDROCHLOROTHIAZIDE 12.5 MG CAP PO SCH (08:02)
[2017-01-12] MEDS: FLUTICASONE 100 MCG/VILANTEROL 25 MCG INHALER INH SCH (08:03)
[2017-01-12] MEDS: SODIUM CHLORIDE 0.9% FLUSH 5 ML FLUSH IVF SCH ×2 (08:03→20:28)
[2017-01-12 08:21] LABS: PLATELET ESTIMATE SMEAR NORMAL (NORMAL); PLATELET MORPHOLOGY NORMAL (NORMAL); SCAN/DIFF AUTO DIFF CONFIRMED
[2017-01-12 12:00] VITALS: BP 142/77; PULSE 90; RESP 16; TEMP 97.8; O2SAT 99
[2017-01-12 16:00] VITALS: BP 108/71; PULSE 88; RESP 16; TEMP 98.7; O2SAT 100
[2017-01-12] MEDS: ENOXAPARIN SODIUM 40 MG/0.4 ML SYRINGE SQ SCH (17:33)
[2017-01-12 20:45] VITALS: BP 139/69; PULSE 93; RESP 18; TEMP 98.2; O2SAT 97
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
[2017-01-13] MEDS: ACETAMINOPHEN/HYDROcodone 325 MG/5 MG TAB PO PRN ×4 (00:14→15:45)
[2017-01-13 00:25] VITALS: BP 128/75; PULSE 84; RESP 17; TEMP 97.1; O2SAT 97
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
[2017-01-13] MEDS: INSULIN ASPART SUPPLEMENTAL SCALE SQ SCH ×3 (07:21→16:00)
[2017-01-13 08:00] VITALS: BP 143/88; PULSE 82; RESP 16; TEMP 97.8; O2SAT 95
[2017-01-13] MEDS: ATORVASTATIN 80 MG TAB PO SCH (08:22)
[2017-01-13] MEDS: buPROPion HCL 150 MG SUSTAINED RELEASE TAB PO SCH (08:22)
[2017-01-13] MEDS: HYDROCHLOROTHIAZIDE 12.5 MG CAP PO SCH (08:23)
[2017-01-13] MEDS: CALCIUM/VITAMIN D 250 MG/125 U TAB PO SCH ×3 (08:23→17:46)
[2017-01-13] MEDS: LOSARTAN 50 MG TAB PO SCH (08:23)
[2017-01-13] MEDS: ACETAMINOPHEN/HYDROcodone 325 MG/10 MG TAB PO PRN (08:24)
[2017-01-13] MEDS: SODIUM CHLORIDE 0.9% FLUSH 5 ML FLUSH IVF SCH (08:24)
[2017-01-13] MEDS: DOCUSATE SODIUM 100 MG CAP PO SCH (08:24)
[2017-01-13] MEDS: FLUTICASONE 100 MCG/VILANTEROL 25 MCG INHALER INH SCH (08:24)
[2017-01-13] MEDS ORDERED: ePHEDrine/NS 25 MG/5 ML SYR IV ONE (08:59)
[2017-01-13] MEDS ORDERED: PHENYLEPH/NS 1000 MCG/10 ML SYR IV ONE (09:00)
[2017-01-13] MEDS ORDERED: ONDANSETRON HCL 4 MG/2 ML VIAL IV PUSH ONE (09:00)
[2017-01-13] MEDS ORDERED: NEOSTIGMINE 3 MG/3 ML SYR IV ONE (09:00)
[2017-01-13] MEDS ORDERED: LACTATED RINGER'S 1000 ML INJ 1,000 ML IV ONE (09:01)
--- NOTE | 2017-01-13 09:54 | PD.ORT.PN ---
Subjective Subjective Remarks Improving, no new complaints Objective Vitals Vital Signs Date Time Temp Pulse Resp B/P Pulse Ox O2 Delivery O2 Flow Rate FiO2 01/13/17 00:25 97.1 84 17 128/75 97 01/12/17 20:45 98.2 93 18 139/69 97 01/12/17 16:00 98.7 88 16 108/71 100 01/12/17 12:00 97.8 90 16 142/77 99 I/O 01/12/17 01/12/17 01/12/17 01/13/17 01/13/17 01/13/17 07:00 15:00 23:00 07:00 15:00 23:00 Intake Total 720 ml 825 ml 240 ml 120 ml Output Total 800 ml 720 ml 400 ml 800 ml Balance -80 ml 105 ml -160 ml -680 ml Intake Oral 720 ml 825 ml 240 ml 120 ml Output Urine Total 800 ml 720 ml 400 ml 800 ml # Voids 2 # Bowel Movements 0 1 0 0 Result Diagram: 01/12/17 0601 01/12/17 0601 Objective Remarks RLE: dressings clean and dry. intact. Full sensation distally with good dorsiflexion. compartments soft Assessment & Plan Assessment and Plan 1) Right Distal Tibia Shaft Fx s/p IMN - POD 9 -TTWB -dressing changes -CM for rehab. Lovenox -ortho clear for discharge to rehab when bed available -f/u with Stephan or SOBEIDA in 2 weeks Stephan Dahl Jr. Jan 13, 2017 09:54
[2017-01-13] MEDS ORDERED: DOCU1CAP39 PO (10:00)
[2017-01-13] MEDS ORDERED: OYST250T4 PO (10:00)
--- NOTE | 2017-01-13 10:01 | HHI.DCPOC ---
Discharge Care Plan Diagnosis: (1) Tibia/fibula fracture (2) Hypertension (3) Diabetes Goals to Promote Your Health * To prevent worsening of your condition and complications * To maintain your health at the optimal level Directions to Meet Your Goals Take your medications as prescribed Follow your dietary instruction Follow activity as directed Keep your appointments as scheduled Take your immunizations and boosters as scheduled If your symptoms worsen call your PCP, if no PCP go to Urgent Care Center or Emergency Room Smoking is Dangerous to Your Health. Avoid second hand smoke Call the 24-hour hour crisis hotline for domestic abuse at Stephan Prado DO Jan 13, 2017 10:01
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
[2017-01-13 16:00] VITALS: BP 139/69; PULSE 90; RESP 18; TEMP 99.1; O2SAT 93
[2017-01-13] MEDS: ENOXAPARIN SODIUM 40 MG/0.4 ML SYRINGE SQ SCH (17:46)
== END 2017-01-13 19:30 | DRG 494 ==
LOC: NEPA 13:24 → NEDH 16:19 → N06B 20:22
PROVIDERS: ADMIT Hospitalist; ATTEND Hospitalist
PROC: 0QSG06Z Reposition Right Tibia with Intramedullary Internal Fixation Device, Open Approach (ICD-10-PCS; 2017-01-05)
PROC: 0QSGXZZ Reposition Right Tibia, External Approach (ICD-10-PCS; principal; 2017-01-05 17:34)
DX: S82.451A Displaced comminuted fracture of shaft of right fibula, initial encounter for closed fracture (principal); E11.65 Type 2 diabetes mellitus with hyperglycemia; S09.90XA Unspecified injury of head, initial encounter; S82.251A Displaced comminuted fracture of shaft of right tibia, initial encounter for closed fracture; I10 Essential (primary) hypertension; E78.5 Hyperlipidemia, unspecified; J45.909 Unspecified asthma, uncomplicated; F41.9 Anxiety disorder, unspecified; E78.00 Pure hypercholesterolemia, unspecified; D72.829 Elevated white blood cell count, unspecified; V23.4XXA Motorcycle driver injured in collision with car, pick-up truck or van in traffic accident, initial encounter; Y93.I9 Activity, other involving external motion; Y92.410 Unspecified street and highway as the place of occurrence of the external cause; Z23 Encounter for immunization; Z79.84 Long term (current) use of oral hypoglycemic drugs
CPT/HCPCS: 27752; 70450; 71010; 72125; 73564; 73590; 73600; 76000; 80048; 80053; 82948; 85025; 85610; 85730; 90471; 90714; 93005; 94150; 96374; 96375; 96376; 99152; C1713; J0131; J0690; J1580; J1650; J1815; J1885; J2270; J2370; J2405; J2710; J3010; J3370; J7030; J7120; L0150